=== PATIENT | female | born 1985 | race Caucasian/White ===

== ENCOUNTER 2019-03-11 23:06 | Emergency (ER) | payer OTHER ==
[2019-03-11] MEDS ORDERED: Albuterol Sulfate 2.5 mg/3 ml Neb ONE (23:18)
--- NOTE | 2019-03-11 23:36 | RAD ---
EXAM: Single view of the chest HISTORY: Wheezing and dyspnea COMPARISON: None FINDINGS: Single view of the chest shows a normal sized cardiomediastinal silhouette. There is no yuri dence of consolidation, mass, or pleural effusion. The bones are unremarkable. IMPRESSION: No evidence of acute cardiopulmonary disease
[2019-03-12] MEDS ORDERED: methylPREDNISolone Sod Succ/PF 125 MG/2 ML VIAL ONE
[2019-03-12] MEDS ORDERED: Magnesium 2 GM/50 ML BAG (IN WATER) ONE (01:00)
[2019-03-12] MEDS ORDERED: Albuterol Sulfate 2.5 mg/3 ml Neb ONE (01:03)
--- NOTE | 2019-03-14 11:53 | EKG ---
Test Reason : SOB Blood Pressure : / mmHG Vent. Rate : 126 BPM Atrial Rate : 126 BPM P-R Int : 100 ms QRS Dur : 078 ms QT Int : 336 ms P-R-T Axes : 000 047 000 degrees QTc Int : 486 ms Sinus tachycardia with short MD Nonspecific T wave abnormality Abnormal ECG Confirmed by CARLEE FLORES DO ([id number]), department editor TISH CASEY ([id number]) on 03/14/2019 11:53:28 AM Referred By: MARK Confirmed By:CARLEE FLORES DO
== END 2019-03-12 02:14 | disposition home or self-care (01) ==
LOC: ERS 23:06
DX: J45.901 Unspecified asthma with (acute) exacerbation (principal); K21.9 Gastro-esophageal reflux disease without esophagitis; F41.9 Anxiety disorder, unspecified; Z79.899 Other long term (current) drug therapy; Z79.51 Long term (current) use of inhaled steroids
CPT/HCPCS: 71045; 93005; 94640; 94760; 96365; 96375; J2930; J3475; J7611; J7620